=== PATIENT | female | born 1995 | race Caucasian/White ===

== ENCOUNTER → 2016-08-18 | Outpatient (CLI) | payer SELFPAY ==
[~2016-08-18] MED LIST: BIRTH CONTROL1 EAC1 PO; IBUPROFEN600 MG PO; OMNICEF300 MG PO; PHENERGAN W/ DE30 ML PO; PREDNICOT10 MG PO; PROAIR HFA0.09 MG/AC INH; ZITHROMAX Z PA250 MG PO; ZYRTEC10 MG PO
== END | disposition home or self-care (01) ==
LOC: US 08-04 18:00
DX: N83.202 Unspecified ovarian cyst, left side (principal); N94.6 Dysmenorrhea, unspecified

== ENCOUNTER → 2016-10-02 | Outpatient (CLI) | payer SELFPAY | END | disposition home or self-care (01) | LOC: US 12:30 | DX: N94.6 Dysmenorrhea, unspecified (principal) ==

== ENCOUNTER → 2017-04-06 | Outpatient (CLI) | payer SELFPAY | END | disposition home or self-care (01) | LOC: US 13:29 | DX: N83.209 Unspecified ovarian cyst, unspecified side (principal) ==

== ENCOUNTER 2018-07-26 15:25 | Emergency (ER) | payer SELFPAY ==
[~2018-07-26] VITALS: Ht 165.1 cm; Wt 59.0 kg
[2018-07-26] MEDS ORDERED: TAMIFLU 75MG CA75 MG PO ×2 (18:03→19:06)
[2018-07-26] MEDS ORDERED: IBUPROFEN600 MG PO (19:06)
[2018-07-26 19:57] VITALS: BP 112/70
== END 2018-07-26 19:56 | disposition home or self-care (01) ==
LOC: ED 15:25
DX: J10.1 Influenza due to other identified influenza virus with other respiratory manifestations (principal)

== ENCOUNTER 2018-11-15 00:43 | Emergency (ER) | payer SELFPAY ==
[~2018-11-15] VITALS: Wt 54.4 kg
--- NOTE | ~2018-11-15 | EKG ---
[place], [place] ELECTROCARDIOGRAM REPORT NAME: LARS WOODRUFF UNIT #: [id number] ROOM: DOCTOR: EPIPHANY DRAFT REPORT BIRTHDATE: [address] [facility] Test Date: 2018-11-15 Test Time: 04:14:21 Pat Name: LARS WOODRUFF Department: Room: Gender: F [employer]: : 1995 Requested By: WARREN CRAWFORD Order Number: [id number] Reading MD: Lamine Clark MD Measurements Intervals [place] Rate: 119 P: 60 [place]: 166 QRS: 71 QRSD: 84 T: -17 QT: 321 QTc: 452 Interpretive Statements Sinus tachycardia Borderline repolarization abnormality Electronically Signed On 11-15-2018 4:29:38 PDT by Lamine Clark MD CM:EKGRPT:ELECTROCARDIOGRAM REPORT [id number] WARREN GARCIA DRAFT REPORT WARREN CRAWFORD DO
[~2018-11-15 00:43] MED LIST changes: +TAMIFLU 75MG CA75 MG PO
[2018-11-15] MEDS ORDERED: CYCLOBENZAPRINE10 MG PO (00:50)
[2018-11-15] MEDS ORDERED: IBU800 MG PO (00:50)
[2018-11-15 03:49] VITALS: BP 138/84
[2018-11-15 04:16] LABS: BASO % 0.3 % (0.0-1.0); EOS % 0.3 % (1.0-4.0); HEMATOCRIT 42.4 % (37.0-47.0); HEMOGLOBIN 14.4 g/dl (12.0-16.0); LYMPH # 1.9 10*3/uL (1.3-4.4); LYMPH % 17.6 % (27.0-41.0); MEAN CELL VOLUME 93.4 fl (81.0-99.0); MEAN CORPUSCULAR HGB 31.7 pg (27.0-31.0); MEAN PLATELET VOLUME 11.3 fl (9.6-12.3); MONO # 0.5 10*3/uL (0.1-1.0); MONO % 4.8 % (3.0-9.0); NEUT # 8.3 10*3/uL (2.3-7.9); NEUT % 76.7 % (47.0-73.0); PLATELET COUNT AUTOMATED 243 10*3/uL (130-400); RED BLOOD COUNT 4.54 10*6/uL (4.10-5.10); RED CELL DISTRI WIDTH 12.9 % (0-14.5); WHITE BLOOD COUNT 10.8 10*3/uL (4.8-10.8)
[2018-11-15 04:27] LABS: ACT PARTIAL THROMBO TIME 27.7 SECONDS (20.0-32.1)
[2018-11-15 04:32] LABS: ALBUMIN 4.1 gm/dl (3.1-4.5); ALKALINE PHOSPHATASE 76 U/L (45-117); BETA-HCG, QUANT < 1.0 mIU/mL (1-3); BUN 10 mg/dl (7-24); CHLORIDE 109 mmol/L (98-107); CREATININE 0.75 mg/dL (0.55-1.02); LIPASE 65 U/L (73-393); POTASSIUM 3.4 mmol/L (3.5-5.1); SGOT/AST 13 IU/L (3-35); SGPT/ALT 18 U/L (12-78); SODIUM 140 mmol/L (136-145); TOTAL PROTEIN 7.5 gm/dL (6.4-8.2); TROPONIN I < 0.015 ng/ml (<0.045)
[2018-11-15 04:44] LABS: BILIRUBIN 1+ (NEGATIVE); BLOOD NEGATIVE (NEGATIVE); CLARITY SL CLOUDY (CLEAR); COLOR YELLOW (YELLOW); GLUCOSE NEGATIVE (NEGATIVE); KETONE 3+ (NEGATIVE); LEUKO ESTERASE NEGATIVE (NEGATIVE); NITRITE NEGATIVE (NEGATIVE); SPECIFIC GRAVITY >= 1.030 (1.005-1.030)
[2018-11-15 04:52] LABS: MUCOUS 1+; RBC 0-2 rbc/hpf (0-2); WBC 0-2 wbc/hpf (0-5)
== END 2018-11-15 05:08 | disposition home or self-care (01) ==
LOC: ED 00:43
PROVIDERS: Student in an Organized Health Care Education/Training Program
DX: M54.2 Cervicalgia (principal); R11.0 Nausea; R00.0 Tachycardia, unspecified; M25.512 Pain in left shoulder; R79.1 Abnormal coagulation profile; X58.XXXA Exposure to other specified factors, initial encounter; Y93.89 Activity, other specified; Y92.89 Other specified places as the place of occurrence of the external cause; Y99.8 Other external cause status

== ENCOUNTER 2018-11-16 11:57 | Emergency (ER) | payer SELFPAY ==
[~2018-11-16] VITALS: Ht 160 cm; Wt 54.4 kg
[~2018-11-16 11:57] MED LIST changes: +CYCLOBENZAPRINE10 MG PO; +IBU800 MG PO
[2018-11-16 11:58] VITALS: BP 125/80
== END 2018-11-16 13:51 | disposition home or self-care (01) ==
LOC: ED 11:57
DX: M54.2 Cervicalgia (principal)

== ENCOUNTER 2019-05-08 15:21 | Emergency (ER) | payer SELFPAY ==
[~2019-05-08] VITALS: Ht 160 cm; Wt 49.9 kg
[2019-05-08 15:23] VITALS: BP 133/97
[2019-05-08] MEDS ORDERED: AMOXICILLIN500 M2 PO (16:45)
[2019-05-08] MEDS ORDERED: ZOFRAN4 MG PO (16:45)
== END 2019-05-08 16:47 | disposition home or self-care (01) ==
LOC: ED 15:21
DX: J10.1 Influenza due to other identified influenza virus with other respiratory manifestations (principal); J45.909 Unspecified asthma, uncomplicated

== ENCOUNTER 2020-10-15 16:21 | Emergency (ER) | payer BC ==
[~2020-10-15] VITALS: Ht 160 cm; Wt 54.4 kg
[~2020-10-15 16:21] MED LIST changes: +AMOXICILLIN500 M2 PO; +ZOFRAN4 MG PO
[2020-10-15 16:24] VITALS: BP 132/88
[2020-10-15] MEDS ORDERED: CEFDINIR300 MG PO (16:37)
== END 2020-10-15 16:51 | disposition home or self-care (01) ==
LOC: ED 16:21
DX: H66.92 Otitis media, unspecified, left ear (principal); Z79.899 Other long term (current) drug therapy

== ENCOUNTER → 2021-03-20 | Outpatient (CLI) | payer BC ==
[~2021-03-20] MED LIST changes: +CEFDINIR300 MG PO
== END | disposition home or self-care (01) ==
LOC: COVID19 15:16
PROVIDERS: ATTEND Internal Medicine
DX: Z11.52 Encounter for screening for COVID-19 (principal)

== ENCOUNTER → 2021-04-09 | Outpatient (CLI) | payer BC | END | disposition home or self-care (01) | LOC: COVID19 16:19 | PROVIDERS: ATTEND Internal Medicine | DX: Z11.52 Encounter for screening for COVID-19 (principal) ==

== ENCOUNTER 2021-05-07 09:15 | Emergency (ER) | payer BC ==
[~2021-05-07] VITALS: Wt 63.5 kg
[2021-05-07 09:24] VITALS: BP 141/95
[2021-05-07] MEDS ORDERED: AUGMENTIN 875875 MG PO (10:51)
[2021-05-07] MEDS ORDERED: FLONASE ALLERG9.9 ML NAS (10:51)
== END 2021-05-07 11:00 | disposition home or self-care (01) ==
LOC: ED 09:15
DX: H66.93 Otitis media, unspecified, bilateral (principal); H72.93 Unspecified perforation of tympanic membrane, bilateral

== ENCOUNTER 2023-05-23 21:49 | Emergency (ER) | payer SELFPAY ==
[~2023-05-23 21:49] MED LIST changes: +AUGMENTIN 875875 MG PO; +FLONASE ALLERG9.9 ML NAS
[2023-05-23 23:31] VITALS: BP 131/82
== END 2023-05-24 01:39 | disposition home or self-care (01) ==
LOC: ED 21:49
DX: T75.89XA Other specified effects of external causes, initial encounter (principal); J45.909 Unspecified asthma, uncomplicated; Z98.890 Other specified postprocedural states; F17.210 Nicotine dependence, cigarettes, uncomplicated; X58.XXXA Exposure to other specified factors, initial encounter; Y93.9 Activity, unspecified; Y92.009 Unspecified place in unspecified non-institutional (private) residence as the place of occurrence of the external cause; Y99.8 Other external cause status

== ENCOUNTER 2023-05-26 15:11 | Emergency (ER) | payer SELFPAY ==
[~2023-05-26] VITALS: Ht 160 cm; Wt 54.4 kg
[2023-05-26 15:33] VITALS: BP 144/84
== END 2023-05-26 16:16 | disposition home or self-care (01) ==
LOC: ED 15:11
DX: Z23 Encounter for immunization (principal)

== ENCOUNTER 2023-05-30 15:27 | Emergency (ER) | payer SELFPAY ==
[~2023-05-30] VITALS: Ht 160 cm; Wt 67.1 kg
[2023-05-30 15:57] VITALS: BP 138/88
== END 2023-05-30 16:12 | disposition home or self-care (01) ==
LOC: ED 15:27
DX: Z23 Encounter for immunization (principal); J45.909 Unspecified asthma, uncomplicated; Z98.890 Other specified postprocedural states

== ENCOUNTER 2023-06-06 14:38 | Emergency (ER) | payer SELFPAY ==
[~2023-06-06] VITALS: Ht 160 cm; Wt 67.1 kg
[2023-06-06 14:53] VITALS: BP 130/85
== END 2023-06-06 15:39 | disposition home or self-care (01) ==
LOC: ED 14:38
DX: Z23 Encounter for immunization (principal)

== ENCOUNTER 2023-09-25 10:08 | Emergency (ER) | payer SELFPAY ==
[~2023-09-25] VITALS: Ht 160 cm; Wt 63.5 kg
[2023-09-25 10:39] VITALS: BP 132/92
[2023-09-25] MEDS ORDERED: CETRAXAL1 EACH OT (11:05)
== END 2023-09-25 11:00 | disposition home or self-care (01) ==
LOC: ED 10:08
DX: H72.92 Unspecified perforation of tympanic membrane, left ear (principal); J45.909 Unspecified asthma, uncomplicated; Z98.890 Other specified postprocedural states